=== PATIENT | male | born 1995 | race Two or more races ===

== ENCOUNTER 2021-04-28 21:05 | Inpatient (IN) | payer OTHER ==
[~2021-04-28] VITALS: Ht 162.6 cm; Wt 58.2 kg
[2021-04-28] MEDS ORDERED: ZOLPIDEM TARTRATE 10 MG TABLET PO PRN (21:45)
[2021-04-28] MEDS ORDERED: LORazepam 2 MG TABLET PO PRN (21:45)
[2021-04-28] MEDS ORDERED: OLANZapine 5 MG RAPDIS TABLET PO PRN (21:45)
[2021-04-28 22:33] LABS: BASOPHILS % (AUTO) 0.2 % (0.0-2.0); EOSINOPHILS % (AUTO) 0.2 % (1.0-6.0); HEMATOCRIT 42.9 % (41-53); HEMOGLOBIN 13.9 g/dL (13.5-17.5); LYMPHOCYTES # (AUTO) 0.6 K/uL (1.0-4.8); LYMPHOCYTES % (AUTO) 7.8 % (22.0-44.0); MEAN CORPUSCULAR HEMOGLOBIN 27.4 pg (26.0-34.0); MEAN CORPUSCULAR HGB CONC 32.4 G/dL (31.0-37.0); MEAN CORPUSCULAR VOLUME 85 fL (80-100); MONOCYTES # (AUTO) 0.7 K/uL (0.1-1.0); MONOCYTES % (AUTO) 8.6 % (2.0-9.0); NEUTROPHILS # (AUTO) 6.5 K/uL (1.8-7.7); NEUTROPHILS % (AUTO) 83.2 % (40.0-70.0); PLATELET COUNT (AUTO) 161 K/uL (150-450); RED BLOOD CELL COUNT(AUTO) 5.06 MIL/uL (4.50-5.90); RED CELL DISTRIBUTION WIDTH 13.6 % (11.5-14.5)
[2021-04-28] MEDS ORDERED: SERT-439 PO (22:33)
[2021-04-28] MEDS ORDERED: OLAN5TAB77 PO (22:33)
[2021-04-28] MEDS ORDERED: TRAZ-252 PO (22:33)
[2021-04-28 22:41] LABS: ANION GAP 7 mmol/L (8-16); CALCIUM, TOTAL 9.1 mg/dL (8.8-10.5); CARBON DIOXIDE 29 mmol/L (22-29); CHLORIDE 107 mmol/L (98-107); CREATININE 1.18 mg/dL (0.60-1.30); GLOMERULAR FILTR. RATE CALC > 60 mL/min (>60); GLUCOSE,RANDOM 106 mg/dL (70-110); POTASSIUM 3.8 mmol/L (3.5-5.1); SODIUM SERUM 143 mmol/L (136-145); UREA NITROGEN, BLOOD 16 mg/dL (7-18)
[2021-04-28] MEDS ORDERED: OLANZapine 5 MG TABLET PO ONE (22:45)
[2021-04-28] MEDS ORDERED: LORazepam 2 MG TABLET PO ONE (22:45)
[2021-04-28 22:47] LABS: ALANINE AMINOTRANSFERASE 115 U/L (12-78); ALBUMIN 4.2 g/dL (3.4-5.0); ALKALINE PHOSPHATASE 82 U/L (46-116); ASPARTATE AMINOTRANSFERASE 71 U/L (15-37); BILIRUBIN,TOTAL 0.5 mg/dL (0.1-1.0); LITHIUM < 0.20 mmol/L (0.60-1.20); TOTAL PROTEIN, SERUM 7.1 g/dL (6.4-8.2); VALPROIC ACID < 3 mcg/mL (50-100)
[2021-04-28 22:57] LABS: COVID AG,FIA SOURCE NASOPHARYNGEAL
[2021-04-29 00:49] LABS: APPEARANCE,URINE CLOUDY (CLEAR); BILIRUBIN,URINE NEGATIVE (NEGATIVE); GLUCOSE, URINE (UA) NEGATIVE (NEGATIVE); KETONES,URINE NEGATIVE (NEGATIVE); LEUKOCYTE ESTERASE ,URINE NEGATIVE (NEGATIVE); NITRATE,URINE NEGATIVE (NEGATIVE); OCCULT BLOOD,URINE NEGATIVE (NEGATIVE); PH,URINE 5.5 (5.0-8.0); PROTEIN,URINE TRACE (NEGATIVE); UROBILINOGEN,URINE 0.2 mg/dL (<=1.0)
[2021-04-29 01:16] LABS: CHOL/HDL RATIO 2.5 (4.2-7.3); CHOLESTEROL 172 mg/dL (131-200); HDL CHOLESTEROL 69 mg/dL (40-60); LDL CHOL (CALC.) 97 mg/dL (0-130); TRIGLYCERIDES 29 mg/dL (15-150)
[2021-04-29 01:17] LABS: AMPHET/METH SCREEN,URINE NEGATIVE (NEGATIVE); BARBITURATE SCREEN, URINE NEGATIVE (NEGATIVE); BENZODIAZEPINES SCREEN,URINE POSITIVE (NEGATIVE); CANNABINOID SCREEN,URINE POSITIVE (NEGATIVE); COCAINE SCREEN,URINE NEGATIVE (NEGATIVE); METHADONE SCREEN, URINE NEGATIVE (NEGATIVE); OPIATE SCREEN,URINE NEGATIVE (NEGATIVE)
[2021-04-29 01:19] LABS: PHENCYCLIDINE SCREEN,URINE NEGATIVE (NEGATIVE)
[2021-04-29 02:07] VITALS: BP 143/94
[2021-04-29 03:52] VITALS: BP 143/94
[2021-04-29] MEDS ORDERED: GuaiFENesin/D-METHORPHAN [SUGAR-FREE] 200-20MG/10 ML SYRUP UDCUP PO PRN (07:45)
[2021-04-29] MEDS ORDERED: TUBERCULIN, PURIFIED PROTEIN DERIVATIVE 5 TU/0.1 ML SYRINGE ID ONE (07:45)
[2021-04-29] MEDS ORDERED: HydrOXYzine PAMOATE 50 MG CAPSULE PO PRN (07:45)
[2021-04-29] MEDS ORDERED: LOPERAMIDE HCL 2 MG CAPSULE PO PRN (07:45)
[2021-04-29] MEDS ORDERED: MAG HYDROX/AL HYDROX/SIMETH ES 30 ML SUSPENSION UDCUP PO PRN (07:45)
[2021-04-29] MEDS ORDERED: PROMETHAZINE HCL 25 MG TABLET PO PRN (07:45)
[2021-04-29] MEDS ORDERED: ACETAMINOPHEN 325 MG TABLET PO PRN (07:45)
[2021-04-29] MEDS ORDERED: MAGNESIUM HYDROXIDE SUSPENSION 30 ML UDCUP PO PRN (07:45)
[2021-04-29] MEDS: THIAMINE 100 MG TABLET PO SCH ×2 (10:15→16:12)
[2021-04-29] MEDS: OMEGA-3/DHA/EPA/FISH OIL 1,000 MG CAPSULE PO SCH (10:15)
[2021-04-29] MEDS: OLANZapine 5 MG RAPDIS TABLET PO SCH ×2 (10:15→17:00)
[2021-04-29] MEDS: FOLIC ACID 1 MG TABLET PO SCH (10:15)
[2021-04-29] MEDS: SERTRALINE HCL 50 MG TABLET PO SCH (10:16)
[2021-04-29] MEDS: MULTIVITAMINS WITH MINERALS, THERAPEUTIC TABLET PO SCH (10:16)
[2021-04-29] MEDS: TraZODone HCL 50 MG TABLET PO SCH (20:12)
[2021-04-29] MEDS: MELATONIN 5 MG TABLET PO SCH (20:12)
[2021-04-29] MEDS: NALTREXONE HCL 50 MG TABLET PO SCH (20:12)
[2021-04-30 05:06] LABS: HIV 1-2 SCREEN 4TH GEN W/RFLX Non Reactive (Non Reactive)
[2021-04-30 07:53] LABS: HEMOGLOBIN A1C 5.5 % (3.8-5.6)
[2021-04-30 08:10] LABS: CHOL/HDL RATIO 2.6 (4.2-7.3); FREE T4 (FREE THYROXINE) 0.71 ng/dL (0.76-1.46); THYROID STIMULATING HORMONE 1.41 uIU/mL (0.36-3.74)
[2021-04-30 08:25] VITALS: BP 130/79
[2021-04-30] MEDS: MULTIVITAMINS WITH MINERALS, THERAPEUTIC TABLET PO SCH (09:05)
[2021-04-30] MEDS: OLANZapine 5 MG RAPDIS TABLET PO SCH ×3 (09:05→16:54)
[2021-04-30] MEDS: THIAMINE 100 MG TABLET PO SCH ×2 (09:05→16:54)
[2021-04-30] MEDS: SERTRALINE HCL 50 MG TABLET PO SCH (09:05)
[2021-04-30] MEDS: FOLIC ACID 1 MG TABLET PO SCH (09:05)
[2021-04-30] MEDS: OMEGA-3/DHA/EPA/FISH OIL 1,000 MG CAPSULE PO SCH (09:05)
[2021-04-30 16:00] VITALS: BP 119/67
[2021-04-30] MEDS: TraZODone HCL 50 MG TABLET PO SCH (20:38)
[2021-04-30] MEDS: NALTREXONE HCL 50 MG TABLET PO SCH (20:38)
[2021-04-30] MEDS: MELATONIN 5 MG TABLET PO SCH (20:38)
[2021-05-01] MEDS: SERTRALINE HCL 50 MG TABLET PO SCH (09:02)
[2021-05-01] MEDS: FOLIC ACID 1 MG TABLET PO SCH (09:02)
[2021-05-01] MEDS: OMEGA-3/DHA/EPA/FISH OIL 1,000 MG CAPSULE PO SCH (09:02)
[2021-05-01] MEDS: OLANZapine 5 MG RAPDIS TABLET PO SCH ×3 (09:02→16:58)
[2021-05-01] MEDS: THIAMINE 100 MG TABLET PO SCH ×2 (09:02→16:58)
[2021-05-01] MEDS: MULTIVITAMINS WITH MINERALS, THERAPEUTIC TABLET PO SCH (09:03)
[2021-05-01 09:46] VITALS: BP 133/78
[2021-05-01] MEDS ORDERED: MELA5TAB40 PO (15:05)
[2021-05-01] MEDS ORDERED: OLAN5TAB94 PO (15:05)
[2021-05-01] MEDS ORDERED: NALT50TA PO (15:05)
[2021-05-01] MEDS ORDERED: SERT-439 PO (15:05)
[2021-05-01] MEDS ORDERED: TRAZ-252 PO (15:05)
[2021-05-01] MEDS ORDERED: OMEG-135 PO (15:05)
[2021-05-01 16:21] VITALS: BP 106/60
== END 2021-05-01 18:35 | disposition home or self-care (01) | DRG 885 ==
LOC: EMS 21:05 → 3EC 23:00
PROVIDERS: ADMIT Psychiatry & Neurology Psychiatry; ATTEND Psychiatry & Neurology Psychiatry
DX: F20.0 Paranoid schizophrenia (principal); G47.00 Insomnia, unspecified; K76.9 Liver disease, unspecified; F17.210 Nicotine dependence, cigarettes, uncomplicated; Z20.822 Contact with and (suspected) exposure to COVID-19; Z55.9 Problems related to education and literacy, unspecified; Z59.9 Problem related to housing and economic circumstances, unspecified; Z63.9 Problem related to primary support group, unspecified; Z65.3 Problems related to other legal circumstances; Z91.19 Patient's noncompliance with other medical treatment and regimen
CPT/HCPCS: 80053; 80061; 80164; 80178; 81003; 83036; 84439; 84443; 85025; 87389; 99285; G0480; Q9967